=== PATIENT | male | born 1955 | race African-American/Black ===

== ENCOUNTER → 2018-08-20 | Outpatient (CLI) | payer OTHER ==
[~2018-08-20] MED LIST: IOPAMIDOL 370 MG/ML 200 ML INFUS..BTL INJ ONE; SODIUM CHLORIDE 0.9% 50ML 50 ML ONE
[2018-08-20 10:27] LABS: BLOOD UREA NITROGEN 11 mg/dL (7-26); BUN/CREATININE RATIO 10 (6-25); EST GLOMERULAR FILTRATION RATE > 60 ML/MIN (60-)
--- NOTE | 2018-08-20 12:40 | Diagnostic Imaging Report ---
EXAMINATION: CT of the abdomen and pelvis with contrast. TECHNIQUE: Spiral CT images of the abdomen and pelvis were performed from the lung bases to the lesser trochanters after the intravenous administration of 100 cc of Isovue-370 and the oral administration of water. Coronal and sagittal reformatted images were obtained. COMPARISON: None. CLINICAL HISTORY:Prostate cancer DISCUSSION: ABDOMEN/PELVIS: LOWER THORAX:Unremarkable. HEPATOBILIARY: No focal hepatic lesions. No intra-or extrahepatic biliary ductal dilation. The gallbladder is normal. SPLEEN: No splenomegaly. PANCREAS: No focal masses or ductal dilatation. ADRENALS: No adrenal nodules. KIDNEYS/URETERS: No hydronephrosis, stones, or solid mass lesions. PELVIC ORGANS/BLADDER: The urinary bladder is unremarkable. The prostate is enlarged with irregular mass effect upon the bladder base as seen on series 2 image 73. PERITONEUM/RETROPERITONEUM: No ascites. No pneumoperitoneum. LYMPH NODES: No pelvic sidewall, retroperitoneal, or mesenteric lymphadenopathy. VESSELS: Atherosclerotic calcification of the abdominal aorta, iliac arterial systems, and major branch vessels without aneurysmal dilatation. Portal vein, splenic vein, and central superior mesenteric vein are patent. GI TRACT: The large bowel shows no evidence of distention or wall thickening. There are scattered sigmoid and transverse colon diverticula without evidence of diverticulitis. The appendix is normal. Prominence of the gastric rugal folds is likely attributable to underdistention. No small bowel dilatation to suggest obstruction. BONES AND SOFT TISSUE: No focal soft tissue abnormalities. No osseous destructive lesions. Degenerative changes of the sacroiliac joints. Multilevel degenerative disc changes of the lumbar spine. IMPRESSION: Prostatomegaly with irregular mass effect on the bladder base in keeping with the provided history of prostate cancer. No regional lymphadenopathy or evidence of distant metastases. Local invasiveness would be better assessed by prostate MRI. Atherosclerotic vascular disease. Large bowel diverticulosis without evidence of diverticulitis Signed by: Dr. Serge Johnson M.D. on 08/20/2018 12:36 PM
--- NOTE | 2018-08-20 19:37 | Diagnostic Imaging Report ---
Bone Scan, delayed phase INDICATION: 63 M with prostate cancer; staging COMPARISON: CT abdo/pelvis 08/20/2018 REPORT: Approximately 3 hours following intravenous administration of 27.2 mCi of Tc-99m MDP, delayed total body images in the anterior and posterior projections and selected spot images were obtained. Degenerative changes are noted in the acromioclavicular joints bilaterally. Otherwise, distribution of tracer activity is unremarkable throughout the skeletal system. No abnormal accumulation of tracer is seen in the soft tissues or urinary tract. IMPRESSION: No scan evidence of metastatic bone disease. Signed by: Dr. Della Alcantara M.D. on 08/20/2018 7:33 PM
== END ==
LOC: NM 09:16 → EDBD 10:00
PROVIDERS: ATTEND Urology
DX: C61 Malignant neoplasm of prostate (principal)
CPT/HCPCS: 36415; 74177; 78306; 82565; 84520; A9503; Q9967